=== PATIENT | female | born 1985 | race Two or more races ===

== ENCOUNTER 2018-03-24 15:00 | Outpatient (CLI) | payer OTHER | END 2018-03-24 15:08 | disposition home or self-care (01) | LOC: RAD 15:00 | DX: M25.572 Pain in left ankle and joints of left foot (principal) ==

== ENCOUNTER 2018-03-25 09:10 | Outpatient (CLI) | payer OTHER | END 2018-03-25 15:17 | disposition home or self-care (01) | LOC: SONOGRAMA 09:10 | DX: M25.572 Pain in left ankle and joints of left foot (principal); S93.431A Sprain of tibiofibular ligament of right ankle, initial encounter ==

== ENCOUNTER 2024-02-02 07:00 | Day surgery (SDC) | payer OTHER ==
[2024-02-01 13:22] LABS: HEMATOCRIT 36.1 % (36.0-45.00); HEMOGLOBIN 12.2 g/dL (12.0-15.00); MEAN CELL VOLUME 85.1 fL (80.00-100.00); MEAN CORPUSCULAR HEMOGLOBIN 28.7 pg (27.00-32.0); MEAN CORPUSCULAR HGB CONC 33.7 g/dl (32.0-36.0); PLATELET COUNT 259 K/uL (150-450); RED BLOOD COUNT 4.25 M/uL (4.00-6.00); RED CELL DISTRIBUTION WIDTH 13.9 % (11.5-14.5)
[2024-02-01 13:39] LABS: INR 1.01; PARTIAL THROMBOPLASTIN TIME 26.5 SECONDS (22.0-34.0); PROTHROMBIN TIME 10.6 SECONDS (9.0-11.5)
[2024-02-01 15:17] LABS: RH POSITIVE
[2024-02-02] MEDS ORDERED: POVIDONE-IODINE 118 ML BOTT TOP ONE (09:25)
[2024-02-02] MEDS ORDERED: CEFOXITIN SODIUM 2,000 MG VIAL IV ONE (09:25)
== END 2024-02-02 15:00 | disposition home or self-care (01) ==
LOC: CIR.AMB 07:00
PROVIDERS: ATTEND Obstetrics & Gynecology Maternal & Fetal Medicine
DX: O02.1 Missed abortion (principal); Z91.02 Food additives allergy status

== ENCOUNTER 2025-05-01 13:03 | Inpatient (IN) | payer OTHER ==
[~2025-05-01] VITALS: Ht 165.1 cm; Wt 80.3 kg
[2025-05-09 22:09] VITALS: BP 122/76
[2025-05-09] MEDS ORDERED: RINGERS SOLUTION,LACTATED 1,000 ML IV SCH (22:30)
[2025-05-09 23:29] VITALS: BP 128/72
[2025-05-09 23:32] LABS: BASO % 0.1 % (0.1-1.2); EOS # 0.01 (0.04-0.54); EOS % 0.1 % (0.7-7.0); LYMPH # 1.34 (1.18-3.74); LYMPH % 9.0 % (19.3-53.1); MEAN PLATELET VOLUME 11.10 fl (9.4-12.4); MONO # 0.92 (0.24-0.82); MONO % 6.2 % (4.7-12.5); NEUT # 12.46 (1.56-6.13); NEUT % 84.1 % (34.0-71.1); RED CELL DISTRIBUTION WIDTH 14.4 % (11.6-14.4)
[2025-05-09 23:58] LABS: INR < 0.93
[2025-05-10] VITALS (7 sets, daily range): BP systolic 102–124; BP diastolic 65–80
[2025-05-10 00:03] LABS: ALT/SGPT 37.0 U/L (12-78); AST/SGOT 27.0 U/L (15-37); BILIRUBIN TOTAL 0.26 mg/dL (0.3-1.2); BUN CREA RATIO 25.0 (7.0-25.0); CREATININE SERUM 0.44 mg/dL (0.55-1.02); GFR 160.03; GLOBULINA 3.6 G/DL (2.4-3.5); GLUCOSE FASTING 91.0 mg/dL (65-100); OSMOLALITY SERUM 275.0 MOSM/KG (275-295)
[2025-05-10] MEDS ORDERED: OXYTOCIN 20 UNITS/1000ML RL PIGGYBAG IV ONE (00:39)
[2025-05-10] MEDS ORDERED: CHLORHEXIDINE GLUCONATE 120 ML BOTTLE TOP ONE (00:39)
[2025-05-10] MEDS ORDERED: ERYTHROMYCIN BASE OPHT 1GM EACH TUBE OP ONE ×2 (00:39→06:45)
[2025-05-10] MEDS ORDERED: LIDOCAINE HCL 1% 10ML VIAL ONE (00:40)
[2025-05-10] MEDS ORDERED: CHLORHEXIDINE GLUCONATE 120 ML BOTTLE TP SCH (06:30)
[2025-05-10] MEDS ORDERED: ACETAMINOPHEN WITH CODEINE 1 UDTAB TABLET PO PRN (06:30)
[2025-05-10] MEDS ORDERED: OXYTOCIN 1,000 ML IV SCH (06:30)
[2025-05-10] MEDS ORDERED: LIDOCAINE HCL 1% 10ML VIAL IJ ONE (06:45)
[2025-05-11] VITALS: BP 115/69
[2025-05-11 08:25] VITALS: BP 120/80
[2025-05-11 18:54] VITALS: BP 123/80
[2025-05-12 00:17] VITALS: BP 125/74
[2025-05-12 08:49] VITALS: BP 120/78
[2025-05-12 12:10] LABS: BASO % 0.3 % (0.1-1.2); EOS # 0.13 (0.04-0.54); EOS % 1.1 % (0.7-7.0); LYMPH # 1.79 (1.18-3.74); LYMPH % 15.4 % (19.3-53.1); MEAN PLATELET VOLUME 10.40 fl (9.4-12.4); MONO # 0.93 (0.24-0.82); MONO % 8.0 % (4.7-12.5); NEUT # 8.67 (1.56-6.13); NEUT % 74.5 % (34.0-71.1); RED CELL DISTRIBUTION WIDTH 14.6 % (11.6-14.4)
[2025-05-12 16:00] VITALS: BP 122/85
[2025-05-13 00:20] VITALS: BP 121/84
[2025-05-13 08:00] VITALS: BP 112/84
== END 2025-05-13 15:44 | disposition home or self-care (01) | DRG 807 ==
LOC: LDR 05-09 22:06 → OB/GYN 05-09 22:06 → LDR 05-10 13:45 → OB/GYN 05-10 14:02
PROVIDERS: Obstetrics & Gynecology; ADMIT Obstetrics & Gynecology; ATTEND Obstetrics & Gynecology
PROC: 4A1HXCZ Monitoring of Products of Conception, Cardiac Rate, External Approach (ICD-10-PCS; 2025-05-09)
PROC: 10E0XZZ Delivery of Products of Conception, External Approach (ICD-10-PCS; principal; 2025-05-10)
PROC: 0KQM0ZZ Repair Perineum Muscle, Open Approach (ICD-10-PCS; 2025-05-10)
PROC: 0UQG7ZZ Repair Vagina, Via Natural or Artificial Opening (ICD-10-PCS; 2025-05-10)
DX: O70.1 Second degree perineal laceration during delivery (principal); Z37.0 Single live birth; Z3A.40 40 weeks gestation of pregnancy

== ENCOUNTER 2025-05-04 11:07 | Outpatient (CLI) | payer OTHER | END 2025-05-04 11:57 | disposition home or self-care (01) | LOC: NST 11:07 | PROVIDERS: ATTEND Obstetrics & Gynecology Gynecology | DX: Z34.83 Encounter for supervision of other normal pregnancy, third trimester (principal) ==